=== PATIENT | female | born 1985 | race African-American/Black ===

== ENCOUNTER 2021-02-10 05:16 | Inpatient (IN) | payer OTHER ==
[~2021-02-10] VITALS: Ht 167.6 cm; Wt 137.0 kg
[~2021-02-10 05:16] MED LIST: NO MEDS; TOPUD MT
[2021-02-10] MEDS ORDERED: ONDANSETRON HCL 4MG/2ML INJ IV STA (06:11)
[2021-02-10] MEDS ORDERED: ACETAMINOPHEN 325MG TABLET PO STA (06:11)
[2021-02-10 06:48] LABS: BG CARBOXYHEMOGLOBIN 0.7 % (0.5-1.5); BG DEOXYHEMOGLOBIN 6.6 % (0.0-5.0); BG FRACTION INSPIRED OXYGEN 21; BG METHEMOGLOBIN 0.2 % (0.0-1.5); BG OXYGEN SATURATION 93.3 % (92.0-98.5); BG OXYHEMOGLOBIN 92.5 % (94.0-97.0); BG PH 7.467 (7.350-7.450); BG SAMPLE SITE LEFT RADIAL; BG TOTAL HEMOGLOBIN 15.7 g/dL (12.0-18.0); BG VENT MODE ROOM AIR
[2021-02-10 06:54] LABS: BASOPHILS % 1.1 % (0.0-2.0); EOSINOPHILS % 0.1 % (0.0-5.0); HEMATOCRIT. 42.9 % (36.0-48.0); HEMOGLOBIN. 14.5 g/dL (12.0-16.0); MEAN CORPUSCULAR HEMOGLOBIN 27.3 pg (28.0-32.0); MEAN CORPUSCULAR VOLUME 81.1 fL (81.0-99.0); MEAN PLATELET VOLUME 9.9 fl (7.4-10.4); MONOCYTES % 13.1 % (2.0-8.0); NEUTROPHILS % 51.7 % (40.0-76.0); PLATELET 216 x1000/uL (130-400); RED BLOOD CELL COUNT 5.29 mill/uL (4.2-5.4); RED CELL DISTRIBUTION WIDTH 15.1 % (11.6-14.6)
[2021-02-10 06:58] LABS: CHLORIDE 107 mEq/L (98-107)
[2021-02-10 07:05] LABS: D-DIMER 0.83 mg/L FEU (<0.50); PROTHROMBIN TIME 11.1 sec (9.6-11.0)
[2021-02-10 07:07] LABS: CREATINE KINASE 92 IU/L (26-192)
[2021-02-10] MEDS ORDERED: AZITHROMYCIN 500 MG in DEXT 5% WATER 250 ML IV STA (09:08)
[2021-02-10] MEDS ORDERED: CEFTRIAXONE 1 G PREMIX 50 ML IV ONE (09:15)
[2021-02-10] MEDS ORDERED: DEXAMETHASONE 4MG/ML 1ML VIAL IV ONE (09:45)
[2021-02-10 10:49] LABS: CLARITY URINE CLEAR (CLEAR); COLOR URINE DARK YELLOW (YELLOW); KETONES URINE TRACE (NEGATIVE); LEUKOCYTE ESTERASE URINE NEGATIVE (NEGATIVE); NITRITE URINE NEGATIVE (NEGATIVE); OCCULT BLOOD URINE NEGATIVE (NEGATIVE); PROTEIN URINE 1+ (NEGATIVE); SPECIFIC GRAVITY URINE 1.029 (1.005-1.030)
[2021-02-10] MEDS ORDERED: ACETAMINOPHEN 325MG TABLET PO PRN (11:45)
[2021-02-10] MEDS: ENOXAPARIN 30MG/0.3ML SYR SUBCUT SCH (22:01)
[2021-02-10] MEDS: GUAIFENESIN-DM 200MG-20MG/10ML UDC PO PRN (22:35)
[2021-02-10 22:46] VITALS: BP 113/65
[2021-02-11 00:29] VITALS: BP 122/63
[2021-02-11 04:00] VITALS: BP 136/74
[2021-02-11] MEDS: ONDANSETRON HCL 4MG/2ML INJ IV PRN ×2 (04:55→17:54)
[2021-02-11 08:00] VITALS: BP 134/68
[2021-02-11] MEDS: ENOXAPARIN 30MG/0.3ML SYR SUBCUT SCH (08:37)
[2021-02-11] MEDS: GUAIFENESIN-DM 200MG-20MG/10ML UDC PO PRN ×2 (08:37→22:10)
[2021-02-11] MEDS: AZITHROMYCIN 250 MG TABLET PO SCH (08:37)
[2021-02-11] MEDS: DEXAMETHASONE 6MG TABLET PO SCH (08:37)
[2021-02-11 12:00] VITALS: BP 125/72
[2021-02-11] MEDS ORDERED: CEFTRIAXONE 1 G PREMIX 50 ML IV SCH (12:00)
[2021-02-11] MEDS: CEFTRIAXONE 1,000 MG in DEXTROSE 5% WATER 50 ML IV SCH (13:50)
[2021-02-11] MEDS: BENZONATATE 100MG CAPSULE PO PRN (13:50)
[2021-02-11] MEDS: THROAT LOZENGES-BENZOCAINE/MENTH/CETYLPYRD CL LOZENGES MM PRN ×2 (13:50→17:55)
[2021-02-11 16:00] VITALS: BP 121/66
[2021-02-11] MEDS ORDERED: ALBUTEROL 6.7GM HFA INHALER ORI PRN (19:15)
[2021-02-11] MEDS: ENOXAPARIN 40MG/0.4ML SYR SUBCUT SCH (21:17)
[2021-02-12] VITALS (7 sets, daily range): BP systolic 106–116; BP diastolic 53–73
[2021-02-12] MEDS: GUAIFENESIN-DM 200MG-20MG/10ML UDC PO PRN ×3 (06:16→21:34)
[2021-02-12] MEDS: DEXAMETHASONE 6MG TABLET PO SCH (08:17)
[2021-02-12] MEDS: AZITHROMYCIN 250 MG TABLET PO SCH (08:17)
[2021-02-12] MEDS: ENOXAPARIN 40MG/0.4ML SYR SUBCUT SCH ×2 (08:18→21:19)
[2021-02-12] MEDS: CEFTRIAXONE 1,000 MG in DEXTROSE 5% WATER 50 ML IV SCH (12:44)
[2021-02-12] MEDS: ZOLPIDEM TARTRATE 5MG TABLET PO PRN ×2 (21:19→21:28)
[2021-02-13] VITALS: BP 102/59
[2021-02-13] MEDS: THROAT LOZENGES-BENZOCAINE/MENTH/CETYLPYRD CL LOZENGES MM PRN (00:24)
[2021-02-13 04:00] VITALS: BP 109/76
[2021-02-13] MEDS: GUAIFENESIN-DM 200MG-20MG/10ML UDC PO PRN ×3 (05:20→21:50)
[2021-02-13 07:42] LABS: BASOPHILS % 0.7 % (0.0-2.0); EOSINOPHILS % 0.1 % (0.0-5.0); HEMATOCRIT. 42.2 % (36.0-48.0); HEMOGLOBIN. 13.9 g/dL (12.0-16.0); LYMPHOCYTES % 54.4 % (20.0-50.0); MEAN CORPUSCULAR HEMOGLOBIN 27.1 pg (28.0-32.0); MEAN CORPUSCULAR VOLUME 82.1 fL (81.0-99.0); MEAN PLATELET VOLUME 10.2 fl (7.4-10.4); MONOCYTES % 12.1 % (2.0-8.0); NEUTROPHILS % 32.7 % (40.0-76.0); PLATELET 254 x1000/uL (130-400); RED BLOOD CELL COUNT 5.14 mill/uL (4.2-5.4)
[2021-02-13 07:43] LABS: CHLORIDE 107 mEq/L (98-107)
[2021-02-13 08:00] VITALS: BP 102/66
[2021-02-13] MEDS: DEXAMETHASONE 6MG TABLET PO SCH (08:21)
[2021-02-13] MEDS: AZITHROMYCIN 250 MG TABLET PO SCH (08:22)
[2021-02-13] MEDS: ENOXAPARIN 40MG/0.4ML SYR SUBCUT SCH ×2 (08:22→20:38)
[2021-02-13 11:59] VITALS: BP 116/71
[2021-02-13] MEDS: CEFTRIAXONE 1,000 MG in DEXTROSE 5% WATER 50 ML IV SCH (12:00)
[2021-02-13 16:00] VITALS: BP 108/55
[2021-02-13 20:00] VITALS: BP 105/59
[2021-02-13] MEDS: ZOLPIDEM TARTRATE 5MG TABLET PO PRN (21:50)
[2021-02-13] MEDS: ALBUTEROL 6.7GM HFA INHALER ORI PRN (21:51)
[2021-02-14] VITALS: BP 105/66
[2021-02-14 04:00] VITALS: BP 119/77
[2021-02-14] MEDS: THROAT LOZENGES-BENZOCAINE/MENTH/CETYLPYRD CL LOZENGES MM PRN (06:03)
[2021-02-14] MEDS: GUAIFENESIN-DM 200MG-20MG/10ML UDC PO PRN ×3 (06:03→20:40)
[2021-02-14 08:00] VITALS: BP 115/60
[2021-02-14] MEDS: AZITHROMYCIN 250 MG TABLET PO SCH (08:04)
[2021-02-14] MEDS: DEXAMETHASONE 6MG TABLET PO SCH (08:04)
[2021-02-14] MEDS: ENOXAPARIN 40MG/0.4ML SYR SUBCUT SCH ×2 (08:05→20:40)
[2021-02-14 12:00] VITALS: BP 114/68
[2021-02-14] MEDS: CEFTRIAXONE 1,000 MG in DEXTROSE 5% WATER 50 ML IV SCH (12:27)
[2021-02-14 16:00] VITALS: BP 122/60
[2021-02-14] MEDS: ALBUTEROL 6.7GM HFA INHALER ORI PRN (16:06)
[2021-02-14 20:00] VITALS: BP 120/72
[2021-02-14] MEDS: ZOLPIDEM TARTRATE 5MG TABLET PO PRN (21:58)
[2021-02-15] VITALS: BP 116/77
[2021-02-15 04:00] VITALS: BP 104/76
[2021-02-15] MEDS: GUAIFENESIN-DM 200MG-20MG/10ML UDC PO PRN ×2 (05:32→14:26)
[2021-02-15 08:00] VITALS: BP 109/57
[2021-02-15] MEDS: DEXAMETHASONE 6MG TABLET PO SCH (08:50)
[2021-02-15] MEDS: ENOXAPARIN 40MG/0.4ML SYR SUBCUT SCH ×2 (08:50→20:37)
[2021-02-15 12:00] VITALS: BP 96/49
[2021-02-15] MEDS: CEFTRIAXONE 1,000 MG in DEXTROSE 5% WATER 50 ML IV SCH (12:59)
[2021-02-15] MEDS: BENZONATATE 100MG CAPSULE PO PRN (14:26)
[2021-02-15 16:00] VITALS: BP 132/75
[2021-02-15 20:00] VITALS: BP 102/62
[2021-02-15] MEDS: THROAT LOZENGES-BENZOCAINE/MENTH/CETYLPYRD CL LOZENGES MM PRN (20:37)
[2021-02-16] VITALS (7 sets, daily range): BP systolic 103–126; BP diastolic 51–75
[2021-02-16] MEDS: GUAIFENESIN-DM 200MG-20MG/10ML UDC PO PRN ×2 (02:30→13:51)
[2021-02-16] MEDS: ENOXAPARIN 40MG/0.4ML SYR SUBCUT SCH (08:53)
[2021-02-16] MEDS: DEXAMETHASONE 6MG TABLET PO SCH (08:53)
[2021-02-16] MEDS ORDERED: TUSSL MT (12:34)
== END 2021-02-16 18:00 | disposition home or self-care (01) | DRG 720 ==
LOC: ER 05:16 → 7WST 10:33 → EDBEDREQ 10:34 → EDBEDREQSVC 10:34 → ENRESERV 19:58
PROVIDERS: ADMIT Internal Medicine; ATTEND Internal Medicine
DX: A41.89 Other specified sepsis (principal); U07.1 COVID-19; J96.00 Acute respiratory failure, unspecified whether with hypoxia or hypercapnia; D72.819 Decreased white blood cell count, unspecified; E44.1 Mild protein-calorie malnutrition; R74.01 Elevation of levels of liver transaminase levels; Z68.42 Body mass index [BMI] 45.0-49.9, adult
CPT/HCPCS: 36415; 36600; 71045; 80048; 80053; 80076; 81003; 82375; 82550; 82728; 82805; 83605; 83615; 84145; 84484; 85025; 85379; 85384; 86140; 87426; 87804; 93005; 99291; J0456; J0696; J1100; J1650; J2405; J7060

== ENCOUNTER 2021-09-18 00:05 | Emergency (ER) | payer MEDICAID, OTHER ==
[~2021-09-18] VITALS: Ht 162.6 cm; Wt 114.0 kg
[~2021-09-18 00:05] MED LIST changes: +TUSSL MT
[2021-09-18] MEDS ORDERED: ONDANSETRON HCL 4MG/2ML INJ IV STA (01:37)
[2021-09-18] MEDS ORDERED: SODIUM CHLORIDE 0.9% 1,000 ML IV ONE (01:45)
[2021-09-18] MEDS ORDERED: LOPERAMIDE HCL 2MG CAPSULE PO ONE (01:45)
[2021-09-18 04:08] LABS: EOSINOPHILS % 0.8 % (0.0-5.0); HEMATOCRIT. 40.3 % (36.0-48.0); HEMOGLOBIN. 13.3 g/dL (12.0-16.0); LYMPHOCYTES % 34.4 % (20.0-50.0); MEAN CORPUSCULAR HEMOGLOBIN 27.2 pg (28.0-32.0); MEAN CORPUSCULAR VOLUME 82.2 fL (81.0-99.0); MEAN PLATELET VOLUME 8.6 fl (7.4-10.4); MONOCYTES % 4.5 % (2.0-8.0); NEUTROPHILS % 59.3 % (40.0-76.0); PLATELET 359 x1000/uL (130-400); RED CELL DISTRIBUTION WIDTH 15.4 % (11.6-14.6)
[2021-09-18 04:17] LABS: CHLORIDE 108 mEq/L (98-107)
[2021-09-18] MEDS ORDERED: LOPE2CAP MT (05:55)
[2021-09-18 07:02] VITALS: BP 132/70
== END 2021-09-18 07:02 | disposition home or self-care (01) ==
LOC: ER 00:05
DX: R19.7 Diarrhea, unspecified (principal); Z88.0 Allergy status to penicillin
CPT/HCPCS: 36415; 80053; 85025; 96361; 96374; 99284; J2405; J7030

== ENCOUNTER 2022-12-12 21:14 | Emergency (ER) | payer MEDICAID ==
[~2022-12-12] VITALS: Ht 167.6 cm; Wt 126.0 kg
[~2022-12-12 21:14] MED LIST changes: +LOPE2CAP MT
[2022-12-12] MEDS ORDERED: IBUPROFEN 400MG TABLET PO ONE (23:00)
[2022-12-12] MEDS ORDERED: ONDANSETRON HCL 4MG TABLET PO ONE (23:00)
[2022-12-12] MEDS ORDERED: LIDOCAINE HCL/EPINEPHRINE 1%-EPI 1:100,000 20 ML VIAL INFIL NR (23:00)
[2022-12-12] MEDS ORDERED: ACETAMINOPHEN 325MG TABLET PO ONE (23:00)
[2022-12-12] MEDS ORDERED: LIDOCAINE HCL/EPINEPHRINE 1%-EPI 1:100,000 50 ML VIAL INFIL ONE (23:00)
[2022-12-13] MEDS ORDERED: CLIN-194 MT (00:52)
[2022-12-13 01:49] VITALS: BP 113/75
== END 2022-12-13 01:50 | disposition home or self-care (01) ==
LOC: ER 21:14
DX: L02.411 Cutaneous abscess of right axilla (principal); Z98.890 Other specified postprocedural states
CPT/HCPCS: 10060; 81025; 99284; J3490; Q0162; Z7610

== ENCOUNTER 2022-12-15 20:37 | Emergency (ER) | payer MEDICAID ==
[~2022-12-15] VITALS: Ht 167.6 cm; Wt 125.0 kg
[~2022-12-15 20:37] MED LIST changes: +CLIN-194 MT
[2022-12-15 22:15] VITALS: BP 160/84
[2022-12-15] MEDS ORDERED: KETOROLAC 60MG/2ML VIAL IM ONE (22:15)
== END 2022-12-15 22:35 | disposition home or self-care (01) ==
LOC: ER 20:37
DX: L02.411 Cutaneous abscess of right axilla (principal); Z88.0 Allergy status to penicillin
CPT/HCPCS: 81025; 96372; 99283; J1885; A4565

== ENCOUNTER 2024-06-18 15:03 | Emergency (ER) | payer MEDICAID ==
[~2024-06-18] VITALS: Ht 172.7 cm; Wt 137.0 kg
[~2024-06-18 15:03] MED LIST changes: +APIX5TAB MT; -CLIN-194 MT; -LOPE2CAP MT; +METF-414 MT
[2024-06-18 15:15] VITALS: O2SAT 99
[2024-06-18] MEDS ORDERED: HYDROCODONE/ACETAMINOPHEN 5/325MG TABLET PO ONE (18:45)
[2024-06-18] MEDS ORDERED: ACET-2708 MT (20:39)
[2024-06-18 21:18] VITALS: BP 155/94; PULSE 83; RESP 18; TEMP 36.89184; O2SAT 99
[2024-06-18] MEDS: HYDROCODONE/ACETAMINOPHEN 5/325MG TABLET PO NR (21:28)
== END 2024-06-18 21:16 | disposition home or self-care (01) ==
LOC: ER 15:03
DX: S16.1XXA Strain of muscle, fascia and tendon at neck level, initial encounter (principal); K21.9 Gastro-esophageal reflux disease without esophagitis; Z88.0 Allergy status to penicillin; Z86.711 Personal history of pulmonary embolism; Z79.84 Long term (current) use of oral hypoglycemic drugs; Z79.01 Long term (current) use of anticoagulants; Z87.01 Personal history of pneumonia (recurrent); Z98.890 Other specified postprocedural states; V49.49XA Driver injured in collision with other motor vehicles in traffic accident, initial encounter; Y93.89 Activity, other specified; Y92.89 Other specified places as the place of occurrence of the external cause; Y99.8 Other external cause status
CPT/HCPCS: 71045; 72050; 72110; 99284

== ENCOUNTER 2025-01-18 22:17 | Emergency (ER) | payer MEDICAID ==
[~2025-01-18] VITALS: Ht 167.6 cm; Wt 118.0 kg
[~2025-01-18 22:17] MED LIST changes: +ACET-2708 MT
[2025-01-18 23:02] VITALS: O2SAT 100
[2025-01-18 23:27] LABS: BASOPHILS % 1.2 % (0.0-2.0); EOSINOPHILS % 1.7 % (0.0-5.0); HEMATOCRIT. 39.9 % (36.0-48.0); HEMOGLOBIN. 13.0 g/dL (12.0-16.0); LYMPHOCYTES % 47.3 % (20.0-50.0); MEAN PLATELET VOLUME 8.8 fl (7.4-10.4); MONOCYTES % 6.7 % (2.0-8.0); NEUTROPHILS % 43.1 % (40.0-76.0); PLATELET 360 x1000/uL (130-400); RED BLOOD CELL COUNT 5.05 mill/uL (4.2-5.4); RED CELL DISTRIBUTION WIDTH 16.6 % (11.6-14.6)
[2025-01-18 23:46] LABS: CREATININE 1.0 mg/dL (0.6-1.0); TROPONIN I HIGH SENSITIVITY 4 ng/L (3.0-34); UREA NITROGEN BLOOD 9 mg/dL (9-23)
[2025-01-19] MEDS ORDERED: KETOROLAC 15MG/ML VIAL IM ONE (00:45)
[2025-01-19 01:24] LABS: HCG SCREEN NEGATIVE
[2025-01-19] MEDS: ACETAMINOPHEN 325MG TABLET PO ONE (01:32)
[2025-01-19] MEDS ORDERED: GUAI600T26 MT (02:52)
[2025-01-19] MEDS ORDERED: BENZ100C86 MT (02:52)
[2025-01-19 03:00] VITALS: BP 146/92; PULSE 75; RESP 20; TEMP 36.8; O2SAT 100
== END 2025-01-19 03:09 | disposition home or self-care (01) ==
LOC: ER 22:17
DX: R07.89 Other chest pain (principal); K21.9 Gastro-esophageal reflux disease without esophagitis; I25.2 Old myocardial infarction; Z79.01 Long term (current) use of anticoagulants; Z79.84 Long term (current) use of oral hypoglycemic drugs; Z86.711 Personal history of pulmonary embolism; Z88.0 Allergy status to penicillin
CPT/HCPCS: 36415; 71045; 80048; 84484; 84703; 85025; 93005; 99285